=== PATIENT | female | born 2000 | race Caucasian/White ===

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

== ENCOUNTER 2020-01-24 11:49 | Emergency (ER) | payer MEDICAID ==
[2020-01-24] MEDS ORDERED: IBUPROFEN 600 MG TABLET PO ONE (14:19)
--- NOTE | 2020-01-24 14:24 | ER Document Report ---
ED Medical Screen (RME) - General Chief Complaint: Fall Injury Stated Complaint: FALL/RIGHT ANKLE PAIN, SWELLING Time Seen by Provider: 01/24/20 13:39 Mode of Arrival: Wheelchair Information source: Patient Notes: Patient is a 19-year-old female comes emergency room complaining of right foot and ankle pain. Patient states that yesterday she was running down a flight of steps lost her balance fell landing somehow on her right ankle and foot. Patient is unsure of the exact mechanism that she hurt it. She states that she took Tylenol after the event woke up this morning is unable to bear weight. She states that she feels like she is fractured her ankle. She denies any other injuries. She is unable to bear any weight on the right foot. Complains of swelling at the ankle. Patient denies any other medical problems. She currently has the Implanon for control. She is a smoker. Physical examination: Patient is a well-nourished well-developed 19-year-old female who is in no apparent distress but in moderate amount of discomfort and pain. Cardiac: Patient displays a rate of 94 beats a minute on monitor no murmurs auscultated. Blood pressure is 113/81. Lungs: Bilateral breath sounds clear to auscultation no rhonchi rales or wheeze. Lower extremity: Examination patient's area of complaint is her right ankle and dorsal foot examination shows there to be circumferential swelling greater on the lateral malleoli are area to a lesser extent on the medial side. Patient unable to flex extend or rotate at the ankle secondary to pain and discomfort. There is some mild tenderness on the dorsal aspect of the foot as well. Patient has good cap refill in nailbeds of the toes. She does have flexion extension of the toes. I have greeted and performed a rapid initial assessment of this patient. A comprehensive ED assessment and evaluation of the patient, analysis of test results and completion of the medical decision making process will be conducted by additional ED providers. Dictation of this chart was performed using voice recognition software; therefore, there may be some unintended grammatical errors. TRAVEL OUTSIDE OF THE [place] IN LAST 30 DAYS: No - Related Data Allergies/Adverse Reactions: No Known Allergies Allergy (Verified 04/15/19 14:38) Past Medical History - Past Medical History Cardiac Medical History: Denies: Hx Heart Attack, Hx Hypertension Pulmonary Medical History: Denies: Hx Asthma Neurological Medical History: Denies: Hx Cerebrovascular Accident, Hx Seizures Renal/ Medical History: Denies: Hx Peritoneal Dialysis GI Medical History: Denies: Hx Hepatitis, Hx Hiatal Hernia, Hx Ulcer Infectious Medical History: Denies: Hx Hepatitis Past Surgical History: Reports: Hx Tonsillectomy. Denies: Hx Mastectomy, Hx Open Heart Surgery, Hx Pacemaker - Immunizations Immunizations up to date: Yes Physical Exam - Vital signs Vitals: Temp Pulse Resp BP Pulse Ox 98.1 F 94 H 16 113/81 99 01/24/20 12:30 01/24/20 12:30 01/24/20 12:30 01/24/20 12:30 01/24/20 12:30 Course - Vital Signs Vital signs: Temp Pulse Resp BP Pulse Ox 98.1 F 94 H 16 113/81 99 01/24/20 12:30 01/24/20 12:30 01/24/20 12:30 01/24/20 12:30 01/24/20 12:30
--- NOTE | 2020-01-24 15:00 | RADIOLOGY REPORT (SQ) ---
EXAM DESCRIPTION: ANKLE RIGHT COMPLETE; FOOT RIGHT COMPLETE IMAGES COMPLETED DATE/TIME: 01/24/2020 1:38 pm REASON FOR STUDY: fall swelling?fracture; fall down stairs. Lateral pain. COMPARISON: None. NUMBER OF VIEWS: Six views. TECHNIQUE: AP, lateral, and oblique radiographic images acquired of the right foot and ankle. LIMITATIONS: None. FINDINGS: MINERALIZATION: Normal. BONES: No acute fracture or dislocation. No worrisome bone lesions. JOINTS: No effusions. SOFT TISSUES: No soft tissue swelling. No foreign body. OTHER: No other significant finding. IMPRESSION: No acute fracture or dislocation of the right foot or ankle. TECHNICAL DOCUMENTATION: JOB ID: [id number] 2010 [employer]- All Rights Reserved Reading location - IP/workstation name: [email or web address]
--- NOTE | 2020-01-24 15:00 | RADIOLOGY REPORT (SQ) ---
EXAM DESCRIPTION: ANKLE RIGHT COMPLETE; FOOT RIGHT COMPLETE IMAGES COMPLETED DATE/TIME: 01/24/2020 1:38 pm REASON FOR STUDY: fall swelling?fracture; fall down stairs. Lateral pain. COMPARISON: None. NUMBER OF VIEWS: Six views. TECHNIQUE: AP, lateral, and oblique radiographic images acquired of the right foot and ankle. LIMITATIONS: None. FINDINGS: MINERALIZATION: Normal. BONES: No acute fracture or dislocation. No worrisome bone lesions. JOINTS: No effusions. SOFT TISSUES: No soft tissue swelling. No foreign body. OTHER: No other significant finding. IMPRESSION: No acute fracture or dislocation of the right foot or ankle. TECHNICAL DOCUMENTATION: JOB ID: [id number] 2010 [employer]- All Rights Reserved Reading location - IP/workstation name: [id number]
--- NOTE | 2020-01-24 15:47 | ER Document Report ---
ED Extremity Problem, Lower - General Chief Complaint: Fall Injury Stated Complaint: FALL/RIGHT ANKLE PAIN, SWELLING Time Seen by Provider: 01/24/20 13:39 Mode of Arrival: Wheelchair Information source: Patient Notes: Patient is a 89-year-old female who I originally triaged. Her history is that she comes to the emergency room complaining of right foot and ankle pain. She states that yesterday she was running down a flight of steps lost her balance fell landing somehow on her right ankle and foot. Patient is unsure of the exact mechanism of injury that caused her to have the injury but states that overnight her right ankle has swollen up. She believes she may have broken it. She is unable to bear weight. She denies any other injuries. And is stated she is unable to bear weight on her right foot TRAVEL OUTSIDE OF THE [place] IN LAST 30 DAYS: No - HPI Patient complains to provider of: Injury Location: Ankle, Foot Occurred: Yesterday Where: Home Onset/Duration: Sudden Quality of pain: Sharp, Throbbing Severity: Severe Pain Level: 4 Context: Wearing shoes Recent injury: Yes Associated symptoms: Unable to bear weight Exacerbated by: Movement, Walking Relieved by: Rest - Related Data Allergies/Adverse Reactions: No Known Allergies Allergy (Verified 04/15/19 14:38) Past Medical History - General Information source: Patient - Social History Smoking Status: Never Smoker Cigarette use (# per day): No Chew tobacco use (# tins/day): No Smoking Education Provided: No Frequency of alcohol use: None Lives with: Family Family History: Reviewed & Not Pertinent - Past Medical History Cardiac Medical History: Denies: Hx Heart Attack, Hx Hypertension Pulmonary Medical History: Denies: Hx Asthma Neurological Medical History: Denies: Hx Cerebrovascular Accident, Hx Seizures Renal/ Medical History: Denies: Hx Peritoneal Dialysis GI Medical History: Denies: Hx Hepatitis, Hx Hiatal Hernia, Hx Ulcer Infectious Medical History: Denies: Hx Hepatitis Past Surgical History: Reports: Hx Tonsillectomy. Denies: Hx Mastectomy, Hx Open Heart Surgery, Hx Pacemaker - Immunizations Immunizations up to date: Yes Review of Systems - Review of Systems Constitutional: No symptoms reported EENT: No symptoms reported Cardiovascular: No symptoms reported Respiratory: No symptoms reported Gastrointestinal: No symptoms reported Genitourinary: No symptoms reported Female Genitourinary: No symptoms reported Musculoskeletal: See HPI, Joint pain, Joint swelling Skin: No symptoms reported Hematologic/Lymphatic: No symptoms reported Neurological/Psychological: No symptoms reported -: Yes All other systems reviewed and negative Physical Exam - Vital signs Vitals: Temp Pulse Resp BP Pulse Ox 98.1 F 94 H 16 113/81 99 01/24/20 12:30 01/24/20 12:30 01/24/20 12:30 01/24/20 12:30 01/24/20 12:30 Interpretation: Normal - Notes Notes: PHYSICAL EXAMINATION: GENERAL: Patient is a well-nourished well-developed 19-year-old female no apparent distress at this time but does appear uncomfortable and appears in pain. HEAD: Atraumatic, normocephalic. NECK: Normal range of motion, supple without lymphadenopathy LUNGS: Breath sounds clear to auscultation bilaterally and equal. No wheezes rales or rhonchi. HEART: Regular rate and rhythm without murmurs Musculoskeletal: Examination patient's area of concern is her right lower extremity. Examination shows there is mild circumferential swelling greater on the lateral malleoli are area and the medial malleoli are area. Patient is unable to flex or extend or rotate at the ankle at this time secondary to pain and discomfort. She displays good dorsalis pedal pulse and good posterior tibial pulses. There is some mild to moderate tenderness on the dorsal aspect of the right foot. Patient has good flexion-extension of the toes. And she has good cap refill in the nailbeds of the toes. NEUROLOGICAL: Cranial nerves grossly intact. Normal speech, normal gait. Normal sensory, motor exams PSYCH: Normal mood, normal affect. SKIN: Warm, Dry, normal turgor, no rashes or lesions noted. Course - Re-evaluation Re-evalutation: 01/24/20 15:46 Patient's x-ray showed no acute fractures. Therefore I am placing patient in a stirrup and posterior OCL Ortho-Glass made to keep her from moving it. I have informed her to be nonweightbearing for 3 days after 3 days take the splint off attempt to bear weight if it still very painful she will need to follow-up with orthopedist. - Vital Signs Vital signs: Temp Pulse Resp BP Pulse Ox 98.1 F 94 H 16 113/81 99 01/24/20 12:30 01/24/20 12:30 01/24/20 12:30 01/24/20 12:30 01/24/20 12:30 Procedures - Immobilization Right Ankle Time completed: 15:47 Pre-Proc Neuro Vasc Exam: Normal Immobilizer type: Ankle stirrup, Short Leg Posterior Performed by: PCT Post-Proc Neuro Vasc Exam: Normal Alignment checked and good: Yes Discharge - Discharge Clinical Impression: Right ankle strain Qualifiers: Encounter type: initial encounter Qualified Code(s): S96.911A - Strain of unspecified muscle and tendon at ankle and foot level, right foot, initial encounter Acute traumatic internal derangement of right ankle Qualifiers: Encounter type: initial encounter Qualified Code(s): S93.04XA - Dislocation of right ankle joint, initial encounter Disposition: HOME, SELF-CARE Instructions: Sprained Ankle ([facility]) Additional Instructions: As we discussed there are no fractures that were seen on the x-rays. However I cannot tell you whether you have torn any ligaments or tendons in the area therefore placing you in a splint and nonweightbearing for the next 3 days. After 3 days I want you to take the splint off and attempt to bear weight on it if it is still painful you will need to see an orthopedic doctor. I am giving you the name of the orthopedist electrical controls technician today you can contact his office to see if he can accommodate you at that point. As we also discussed I want you to ice it down at least 3 times a day. You can do this by putting a garbage bag over top of the splint putting bags of ice on top and underneath the ankle and icing it for approximately an hour each time because it takes a while for that cold is to get down to the ankle through all the material. I am giving you a sixpack of some pain medication for the first little bit will take off the pain and discomfort. And then after that you can use Tylenol alternate with Motrin for pain. Should you have any concerns or problems over the weekend he can return to ER for reevaluation. Referrals: JAROCHO SMALL MD [ACTIVE STAFF] - Follow up as needed
[2020-01-24] MEDS ORDERED: HYDROCODONE/ACETAMINOPHEN 5-325 MG (6 TAB/ER DISP) PO PRN (15:51)
[2020-01-24 16:53] VITALS: BP 116/80
== END 2020-01-24 16:54 | disposition home or self-care (01) ==
LOC: ER 11:49
DX: S93.04XA Dislocation of right ankle joint, initial encounter (principal); S96.911A Strain of unspecified muscle and tendon at ankle and foot level, right foot, initial encounter; M79.671 Pain in right foot; W10.8XXA Fall (on) (from) other stairs and steps, initial encounter; Y92.009 Unspecified place in unspecified non-institutional (private) residence as the place of occurrence of the external cause
CPT/HCPCS: 99283